=== PATIENT | female | born 1950 ===

== ENCOUNTER → 2016-05-20 | Outpatient (CLI) | payer MEDICARE, OTHER | END | disposition disaster alternative care site (69) | LOC: GBCOE 10:29 | DX: Z12.31 Encounter for screening mammogram for malignant neoplasm of breast (principal) | CPT/HCPCS: G0202 ==

== ENCOUNTER → 2016-10-02 | Outpatient (CLI) | payer MEDICARE, OTHER | LOC: LFPA 10:34 | DX: M85.80 Other specified disorders of bone density and structure, unspecified site (principal); Z11.59 Encounter for screening for other viral diseases ==